=== PATIENT | male | born 1945 | race Caucasian/White ===

== ENCOUNTER 2024-08-15 21:03 | Inpatient (IN) | payer MEDICARE, BC, SELFPAY ==
[2024-08-15] VITALS (7 sets, daily range): BP systolic 98–136; BP diastolic 53–72; BMI 20.8
[2024-08-15 18:03] LABS: % Basophils 0.3 % (0-2); % Immature Granulocytes 0.3 % (0-0.5); % Lymphocytes 5.3 % (20.5-51.1); % Monocytes 6.7 % (1.7-9.3); % Neutrophils 87.4 % (42.2-75.2); Absolute Lymphocytes 0.5 10^3/uL (1.2-3.4); Absolute Monocytes 0.7 10^3/uL (0.1-0.6); Absolute Neutrophils 8.5 10^3/uL (1.4-6.5); Hematocrit 41.2 % (39.0-52.0); Mean Corpuscular Hgb 35.1 pg (27.0-31.0); Mean Corpuscular Volume 103.3 fL (80.0-94.0); Mean Platelet Volume 11.3 fL (7.4-10.4); Nucleated Red Blood Cells % 0 % (-); Platelet Count 140 10^3/uL (130-400); Red Blood Cell Count 3.99 10^6/uL (4.70-6.10); Red Cell Dist. Width 13.1 % (11.5-14.5); White Blood Cell Count 9.7 10^3/uL (4.8-10.8)
[2024-08-15 18:13] LABS: ALT (SGPT) 28 U/L (0-50); AST (SGOT) 39 U/L (17-59); Albumin 3.7 g/dl (3.5-5.0); Alkaline Phosphatase 75 U/L (38-126); Blood Urea Nitrogen 40 mg/dl (9-20); Calcium 8.5 mg/dl (8.4-10.2); Carbon Dioxide 31 mmol/L (22-30); Chloride 90 mmol/L (98-107); Glucose 125 mg/dl (70-99); Potassium 4.1 mmol/L (3.5-5.1); Sodium 127 mmol/L (135-145); Total Bilirubin 1.5 mg/dl (0.2-1.3); Total Protein 6.1 g/dl (6.3-8.2); eGFR 56.93
--- NOTE | 2024-08-15 19:13 | ED.GENMED ---
History of Present Illness
General
Chief Complaint: Breathing Problem
Time Seen by Provider: 08/15/24 18:23
History of Present Illness
History of Present Illness:
78-year-old male with history of stage IV head and neck cancer currently in remission, chronic bronchitis, and dysphagia with feeding tube dependence presents to the emergency department for evaluation of cough and fever as well as chills beginning
yesterday. Reports severe weakness, was unable to get himself up and out of bed today. No chest pain at present. Cough is dry but he does have audible crackles. He is able to tolerate small amounts of oral hydration denies any recent suspected
aspiration events but admits 'my aspiration tends to be silent'.
Limited review of patient's medical records through [facility] via [facility] revealed the patient had a CT scan last year showing right greater than left lower lung scarring
Review of Systems
Review of Systems
Allergies reviewed?: Yes
All Other Systems: ROS reviewed and negative except as documented in HPI and ROS
Phy Exam
Physical Exam
Physical Exam:
GEN: Thin and frail, no acute distress
Eyes: PERRLA, EOMs intact, no scleral icterus
HENT: NCAT, oral mucosa dry
Lungs: Tachypneic, no accessory muscle use, diffuse expiratory crackles heard throughout all lung stubbs
Cardiac: RRR, no M/R/G, no peripheral edema. Radial pulses 2+ bilat
Abdomen: S, NT, ND, NABS, no masses or hepatosplenomegaly
Neuro: AO x 3
MSK: No gross deformity or ecchymosis. No edema. No digital clubbing
Skin: No rashes, petechiae. Normal color, no pallor or jaundice.
Psych: Calm, cooperative, proper hygiene
Scores
Heart Failure Risk
Heart Failure Risk Score: Not Applicable
Course
Orders/Labs/Results
Orders:
Orders
08/15/24 Breakfast
Bolus/Syringe Enteral Tube Feed
At Your Request: Full Participation
Tube Feed Product: isosource
Patient's home regimen is:: isource 6 can s 2-3 times daily via G tube
08/15/24 17:40
Electrocardiogram (*1) Urgent
Reason for Study: Shortness of Breath
CXR2 [CR Chest - 2 Views ] Urgent
Comment:
Reason For Exam: sob
08/15/24 17:41
EKG- Treatment ONCE
08/15/24 17:51
Complete Blood Count/With Diff Urgent
Comprehensive Metabolic Panel Urgent
Serum Osmolality Urgent
Comment: ADD ON
08/15/24 18:48
Azithromycin 500 mg/250 ml [Zithromax Infusion] 500 mg in 250 ml IV NOW
CefTRIAXone [Rocephin] 1,000 mg IV NOW STA
08/15/24 18:49
Add On- LAB Urgent
Tests Added?: serum osmolality
Urine Sodium Urgent
Date Specimen was Collected: 08/16/24
Time Specimen was Collected: 00:15
08/15/24 19:12
Procalcitonin Urgent
PCT Algorithmm Indication: Respiratory
08/15/24 19:17
Ipratropium/Albuterol Sulfate [Duoneb] 3 ml INH R NOW ONE
08/15/24 19:21
Doxycycline [Vibramycin] 100 mg TUBE NOW STA
08/15/24 19:23
COVID-19 Antigen Urgent
Source: Nasal Swab
Influenza A+B Rapid Molecular Urgent
BENNY Source: Nasal Swab
Specimen Description:
08/15/24 19:36
0.9% Sodium Chloride 500 ml [Nss] 500 ml IV BOLUS
08/15/24 20:01
Urine Osmolality Random [Osmolality, Random Urine] Urgent
Date Specimen was Collected: 08/16/24
Time Specimen was Collected: 00:15
08/15/24 20:30
Legionella Urinary Antigen Urgent
BENNY Source: Urine
Specimen Description:
Strep pneumoniae Antigen Urgent
BENNY Source: Urine
Specimen Description:
08/15/24 20:44
Admit/Transfer Patient As Directed
Co-Sign Provider:
Level of Care: Inpatient admission
Assign to:: Medical/Surgical
Physician / Group: jayne
Diagnosis: pneumonia
Reason for Hospitalization: pneumonia
Expected length of stay greater than two midnights?: Yes
ELOS- Estimated Length of Stay in days: 3
I certify the patient meets the requirements for IP care: Yes
08/15/24 20:45
PRN Pain Medication Management As Directed
May give lesser potent ordered pain med per pt: Yes
preference::
Protocol:: Medication orders for pain may be administered in a
manner that supports deferring to patient preference
when the pt is:
- Requesting an ordered lesser potent pain medication.
Least to most potent pain medications are defined
as: acetaminophen < NSAID < tramadol < opioids
(morphine, oxycodone, hydromorphone).
- Requesting a lesser dose of the same medication IF
ORDERED.
- Requesting a less intrusive route of administration
if both routes are prescribed by the provider (PO <
IV).
08/15/24 20:47
Code Status As Directed
Resuscitation Status: Full Code
08/15/24 22:23
0.9% Sodium Chloride 1000 ml [Nss] 1,000 ml IV 120 mls/hr
Acetaminophen [Tylenol] 650 mg TUBE Q4HPRN PRN
Ipratropium/Albuterol Sulfate [Duoneb] 3 ml INH R Q4HPRN PRN
08/15/24 22:23
OID Stone Finisher Consult Routine
Reason for Consult: TF
Respiratory Culture/Gram Stain Urgent
BENNY Source: Sputum
Specimen Description:
Activity As Directed
Activity Level: Out of Bed-Early Mobility
Intake/ Output As Directed
Frequency: Per unit guidelines
Vital Signs As Directed
Frequency: Per unit guidelines
Weight As Directed
Frequency: Once
Comment: on admission
Pt Eval And Treat Routine
Activity Level: As Tolerated
Speech Therapy Eval & Treat Routine
DX Deep Vein Thrombosis Video Routine
08/16/24 Breakfast
NPO
Allow oral meds: No
Allow clear liquids: No
Basic Metabolic Panel IN AM
Levothyroxine [Synthroid] 137 mcg TUBE MoTuWeThFrSa@0600
08/16/24 08:00
Doxycycline [Vibramycin] 100 mg TUBE BID
Ezetimibe [Zetia] 10 mg TUBE DAILY
Rosuvastatin Calcium [Crestor] 20 mg TUBE DAILY
08/16/24 18:00
Enoxaparin Sodium [Lovenox] 40 mg SC QPM
08/16/24 20:00
CefTRIAXone [Rocephin] 1,000 mg IV Q24H
08/17/24 06:00
Basic Metabolic Panel IN AM
Levothyroxine [Synthroid] 274 mcg TUBE VELÁZQUEZ@0600
08/18/24 06:00
Basic Metabolic Panel IN AM
08/19/24 06:00
Basic Metabolic Panel IN AM
Abnormal Lab Results
08/15/24 08/15/24
17:51 19:12
RBC 3.99 L 10^6/uL
(4.70-6.10)
MCV 103.3 H fL
(80.0-94.0)
MCH 35.1 H pg
(27.0-31.0)
MPV 11.3 H fL
(7.4-10.4)
Absolute Neuts (auto) 8.5 H 10^3/uL
(1.4-6.5)
Absolute Lymphs (auto) 0.5 L 10^3/uL
(1.2-3.4)
Absolute Monos (auto) 0.7 H 10^3/uL
(0.1-0.6)
Neutrophils % 87.4 H %
(42.2-75.2)
Lymphocytes % 5.3 L %
(20.5-51.1)
Sodium 127 L mmol/L
(135-145)
Chloride 90 L mmol/L
(98-107)
Carbon Dioxide 31 H mmol/L
(22-30)
BUN 40 H mg/dl
(9-20)
Glucose 125 H mg/dl
(70-99)
Serum Osmolality 272 L mOsm/kg
(275-300)
Total Bilirubin 1.5 H mg/dl
(0.2-1.3)
Total Protein 6.1 L g/dl
(6.3-8.2)
Procalcitonin 1.51 H ng/ml
(0.0-0.25)
08/15/24 17:51
08/15/24 17:51
Vital Signs
Initial and Last Documented VS:
Initial Vital Signs
Temp Pulse Resp BP Pulse Ox
97.6 F 82 16 136/72 94
08/15/24 17:30 08/15/24 17:30 08/15/24 17:30 08/15/24 17:30 08/15/24 17:30
Last Documented Vital Signs
Temp Pulse Resp BP Pulse Ox
97.9 F 81 20 108/64 95
08/15/24 22:26 08/15/24 22:26 08/15/24 22:26 08/15/24 22:26 08/15/24 22:26
MDM/Problems Addressed
MDM/Problems Addressed:
Chest x-ray reveals a left lower lobe infiltrate, although I have no direct comparison images in the patient's medical record the description on his prior CT chest suggest this is a new infiltrate. He is also noted to be hyponatremic, review of
prior labs shows typical sodium levels of 1 34-1 35. Will start empiric antibiotics and admit for further evaluation and management
*Critical Care Note
Total Time (30-74mins, 75-104mins- exclusive of procedures): Not Applicable
ED Attending Note
-
Portions of this chart may have been created with voice recognition software.� Occasional wrong word or��sound alike� substitutions may have occurred due to the inherent limitations of voice recognition software.
Discharge Plan
Departure
Patient Disposition: Admit
Date of Disposition: 08/15/24
Time of Disposition: 19:53
Admit to: Med/Surg
Presentation/result/management discussed w/ accepting MD/DO: Hospitalist
Discharge Problem:
Left lower lobe pneumonia, Acute hyponatremia
Interventions
Interventions:
*Risk Screen - Suicide Last Done: 08/15/24 17:30
*General Assessment Last Done: 08/15/24 18:32
*Neglect/Abuse Screening Last Done: 08/15/24 17:30
*ED COVID-19 Vaccine History Last Done: 08/15/24 18:32
*Nursing Disposition Last Done: 08/15/24 22:23
ED- Cardiac Assessment Last Done: 08/15/24 18:31
ED- Pulmonary Assessment Last Done: 08/15/24 18:31
Discharge Date and Time
Discharge Date/Time: 08/15/24 22:24
[2024-08-15 19:35] LABS: Osmolality Serum 272 mOsm/kg (275-300)
[2024-08-15 19:48] LABS: Procalcitonin 1.51 ng/ml (0.0-0.25)
[2024-08-15 19:51] LABS: COVID-19 Antigen Negative (Negative)
--- NOTE | 2024-08-15 19:58 | HPS.HSE ---
Addendum entered and electronically signed by Vince Briceno DO 08/15/24 21:07:
Patient seen and examined independently. Agree with findings and plan as set forth by FLAKO Rogers.
Patient is a 78y M with PMH significant for head and neck cancer (lymphoepithelioma) currently in remission and chronic dysphagia / G-tube dependent who presents to ED complaining of fever / chills and cough x 24 hours. Patient reports cough
productive of white sputum. No known sick contacts. Generalized weakness / fatigue. Patient is generally followed at [facility] with no prior labs / visits here for comparison.
Ass:
LLL Pneumonia
Acute on Chronic Hyponatremia
Head and neck Cancer (in remission)
Chronic Dysphagia / Post-XRT and Surgical Changes
Hypothyroidism
Prostate Cancer
Plan:
Admit for further evaluation and treatment.
Abx for CAP. Supportive care, nebs, O2, etc.
Aspiration precautions / formal Speech evaluation.
Continue usual TF for now via PEG. Nothing by mouth.
IVFs overnight and follow for improvement in Na / lytes.
Follow-up results of urine studies.
Follow for clinical improvement.
Continue usual T4 supplementation.
Obtain prior records for comparison.
Original Note:
Family Physician
-
Family Physician: Avelina Langford MD
Chief Complaint
-
cough
chills
History of Present Illness
78-year-old male with history of stage IV lymphoepithelioma follows [facility], prostate ca, dysphagia presented to us with cough and fever as well as chills beginning yesterday. patient stated cough with white thick sputum. he felt warm
yesterday but did not check the temperature. patient stated very fatigue and weak since yesterday. denied SAMAYOA, dizzy or syncope.denied chest pain but stated sob. denied abdominal pain,n,v. 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 denied dysuria or
hematuria.
chest x ray with LLL pneumonia. patient ordered ceftriaxone, zithro and doxy in ER. patient received nebs in ER. admitting for further management.
Medical History
Past Medical History
Past Medical History: Reports Other
Additional Past Medical History:
lymphoepithelioma
osteoradionecrosis
HLD
prostate cancer
hypothyroidism
pneumonia
dysphagia
Past Surgical History: Reports Other
Additional Past Surgical History:
right temporal bone removed
multiple neck surgery
muscle graft
Social History
Tobacco: Former Smoker
Alcohol: Occasional
Drug: None
Personal:
Living: With Family
Family History
Family History: Not pertinent
Allergies / Home Medications
Allergies reflects when Allergies were last updated in [facility].
Home Medications with original date entered in [facility]
Allergy/Medication List:
Allergies
Allergy/AdvReac Type Severity Reaction Status Date / Time
Sulfa (Sulfonamide Allergy Hives Verified 08/15/24 17:40
Antibiotics)
Home Medications
albuterol sulfate 90 mcg/actuation aerosol inhaler 2 puff inhalation R Q6HPRN PRN sob 08/15/24
aspirin 81 mg tablet,delayed release 81 mg PO DAILY 08/15/24
bisacodyl 5 mg tablet,delayed release (Dulcolax (bisacodyl)) 10 mg PO DAILYPRN PRN if no bm aftr miralax 08/15/24
ezetimibe 10 mg tablet (Zetia) 10 mg PO DAILY 08/15/24
fluticasone propionate 50 mcg/actuation nasal spray,suspension 1 spray intranasal BIDPRN PRN allergies 08/15/24
formoterol fumarate 20 mcg/2 mL solution for nebulization 20 mcg inhalation R BID 08/15/24
guaifenesin 600 mg tablet, extended release 12 hr (Mucinex) 600 mg PO BIDPRN PRN cough 08/15/24
levothyroxine 137 mcg tablet (Synthroid) 137 mcg PO MOTUWETHFRSA@0800 08/15/24
levothyroxine 137 mcg tablet (Synthroid) 274 mcg PO VELÁZQUEZ@0800 08/15/24
polyethylene glycol 3350 17 gram oral powder packet (Miralax) 17 g PO DAILYPRN PRN constipation 08/15/24
rosuvastatin 20 mg tablet (Crestor) 20 mg PO DAILY 08/15/24
vitamins A,C,G-ypfr-juloxu 2,148 mcg-113 mg-45 mg-17.4 mg tablet (PreserVision AREDS) 1 tab PO BID 08/15/24
Review of Systems
-
Constitutional: Reports Fever and Fatigue
EENT: Reports No Symptoms
Respiratory: Reports Cough and Trouble Breathing
Cardiac: Reports No Symptoms
Abdomen/GI: Reports No Symptoms
: Reports No Symptoms
Musculoskeletal: Reports No Symptoms
Skin: Reports No Symptoms
Neurological: Reports Weakness
Endocrine: Reports No Symptoms
Hematologic/Lymphatic: Reports No Symptoms
Psych: Reports No Symptoms
Physical Exam
Vital Signs
Vital Signs
Temp Pulse Resp BP Pulse Ox
97.6 F 77 24 123/70 95
08/15/24 17:30 08/15/24 18:28 08/15/24 18:28 08/15/24 18:28 08/15/24 18:31
Physical Exam
General: Well Developed, Well Nourished and No Apparent Distress
HEENT: NormoCephalic, Moist mucous membranes and Atraumatic
Respiratory: Rhonchi and Crackles
Cardiac: S1/S2 and Regular Rhythm; No Murmur or Rub
GI: Soft, Non Tender, Non Distended and Normal Bowel Sounds; No Organomegaly
Rectal: Deferred by Provider
Musculoskeletal: No Clubbing, No Cyanosis and No Edema
Skin: No Rash
Neuro: AO x 3 and Nonfocal/grossly intact
Psych: Calm
Laboratory Results
-
02/21/25 17:51
08/15/24 17:51
Laboratory Results
Total Bilirubin 1.5 mg/dl (0.2-1.3) H 08/15/24 17:51
AST 39 U/L (17-59) 08/15/24 17:51
ALT 28 U/L (0-50) 08/15/24 17:51
Alkaline Phosphatase 75 U/L (38-126) 08/15/24 17:51
Data Reviewed
-
Diagnostic Radiology: Report Reviewed by me
Lab Data: Labs Reviewed by me
Impression/Plan
-
#left lower lobe pneumonia
-procal 1.51
-covid negative
-flu negative
-chest x ray with Moderate amount of airspace opacity in the left lower lung most consistent with MODERATE LEFT LOWER LOBE PNEUMONIA. An inflammatory pneumonitis or alveolar pulmonary edema are considered less likely.
-iv ceftriaxone and doxy continued
-urine legionella and strep pneumonia
-Tylenol prn for fever
#stage 1v lymphoepithelioma
-last radiation therapy in 1998
-hxt of neck surgery
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
-defer medication that cause ototoxicity
#dysphagia due to cancer
-peg tube in place, patient takes oral liquid
-will keep patient NPO, until speech evaluation
-will continue Isosource TF
#acute on chronic hyponatremia likely from hypovolemic
-na 127
-fluids continued
-BMP in am
#hxt of prostate ca
-s/p proton therapy
#hypothyroidism
-levothyroxine continued
#HLD
-statin,Zetia continued
#DVT prophylaxis
-Lovenox
#CODE status
-full code
-patient has complicated Airway.
[2024-08-15] MEDS: ROCEPHIN 1000 MG IV (20:26)
[2024-08-15] MEDS: NSS 500 IV (20:26)
[2024-08-15] MEDS: VIBRAMYCIN 100 MG TUBE (20:33)
[2024-08-15] MEDS: DUONEB 3 ML INH (20:33)
--- NOTE | 2024-08-15 22:30 | PTCARENOTE ---
Pt arrived to [facility] from ED, AAOx3, 4/10 pain throughout body but denies the need for pain meds at this time. Pt oriented to room, call dudley within reach. PEG site remains clean dry and intact in LUQ abdomen. Plan of care reviewed with pt, VSS.
Pt is ordered bolus/syringe tube feedings - isosource 6 cans daily. Nursing pressroom supervisor Moy notified - will check kitchen for tube feed cans.
[2024-08-16 00:46] LABS: Osmolality Urine 571 mOsm/kg (300-900)
[2024-08-16 01:01] LABS: Urine Sodium 10 mmol/L (30-90)
[2024-08-16] MEDS: NSS 1000 IV (01:45)
[2024-08-16] MEDS: SYNTHROID 137 MCG TUBE (05:54)
[2024-08-16] MEDS: TYLENOL 650 MG TUBE ×3 (05:54→22:02)
[2024-08-16 06:00] VITALS: BMI 20.8
[2024-08-16 07:05] VITALS: BP 89/49
[2024-08-16] MEDS: VENTOLIN NEBULES 2.5 MG INH ×4 (07:58→19:41)
--- NOTE | 2024-08-16 08:12 | W.PN.HOSP.TC ---
Today's Communication/Plan
-
Continue antibiotics
Await labs
Resume tube feeds
Speech therapy consult
Acapella, incentive spirometer
Guaifenesin
Assessment / Plan
Assessment / Plan
Gen-AAOx3, NAD
HEENT-NC, AT, anicteric, clear oral mm
Neck-supple
CV-reg, no M, +S1/S2
Lungs-Rales at the left base
Abd-soft, NT, ND
Ext-no edema
Musculoskeletal-no cyanosis, clubbing
Skin-warm and dry
Neuro-grossly non-focal
Psych-calm, cooperative
Community-acquired pneumonia -involving left lower lobe. Continue ceftriaxone, doxycycline. Not hypoxic. Chest x-ray reviewed.
Last episode of pneumonia was 1 year ago as per patient. Hemodynamically stable. Afebrile. WBC count normal.
COVID, influenza negative. Urinary antigens negative.
Chronic dysphagia -due to previous head and neck cancer, radiation treatments. Resume tube feeds via PEG tube. In the hospital he uses Jevity 1.5 as per nursing.
Speech therapy consulted as patient does drink water and coffee by mouth at home.
Acute on chronic hyponatremia -suspect SIADH. Serum osmolality 272, urine osmolality 571. Labs pending for today. Recommend fluid restriction. Can stop IV fluids.
History of head and neck cancer -last radiation treatment 1998.
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
Hypothyroidism -continue levothyroxine.
Hyperlipidemia -rosuvastatin, Zetia.
History of prostate cancer
full code
Dispo -potential discharge tomorrow if he remains stable. Discussed with patient.
Anticipated Discharge: Within 24 hours
Subjective/Interval History
-
Date of Service: August 16, 2024
Patient seen and examined. No complaints currently.
Objective Data
-
Labs:
Laboratory Results
08/16/24
06:00
Sodium Pending
Potassium Pending
Chloride Pending
Carbon Dioxide Pending
BUN Pending
Creatinine Pending
Glucose Pending
Calcium Pending
Vital Signs:
Vital Signs
Temp Pulse Resp BP Pulse Ox
97.9 F 18 20 108/64 95
08/15/24 22:26 08/16/24 08:02 08/15/24 22:26 08/15/24 22:26 08/16/24 08:02
I&O
08/15/24 08/16/24 08/17/24
06:59 06:59 06:59
Intake Total 500 / 500
Balance 500 / 500
Review of Systems
-
History Source: Patient
All other systems: Reviewed and negative
--- NOTE | 2024-08-16 09:11 | PTOTSP ---
SPEECH THERAPY SWALLOW EVALUATION:
Patient exhibits clinical signs of pharyngeal dysphagia, in patient with known chronic pharyngeal and esophageal dysphagia 2/2 XRT and surgical changes for head/neck cancer. Patient currently with pneumonia, along with history of repeated
pneumonias. Patient currently tolerating oral liquids (coffee and water) and medications at home with PEG for all nutrition. History of VSEs at [facility], most recently several years ago per pt report. Given chronicity of dysphagia and history of XRT,
patient remains at HIGH RISK for aspiration (including silent aspiration) and related complications. Recommend VSE to further assess current swallow physiology at this time. Given chronicity of dysphagia and PEG tube currently in place, patient
would be appropriate to complete VSE as Outpatient (at or [facility] per pt preference). Recommend continued outpatient follow up with patient's current ST at [facility] upon discharge. Until VSE, recommend strict NPO with PEG for all
nutrition/medication/hydration. Consider initiation of ARHP once pulmonary status improves. Discussed with patient, who was in agreement with plan. ST to follow at the acute care level.
RECOMMEND:
1) strict NPO with PEG for all nutrition/medication/hydration
2) VSE - would be appropriate for Outpatient at or [facility] per patient preference
3) Continued outpatient ST follow up
4) Oral care 3x/day
5) ST to follow at the acute care level
6) Consider initiation of ARHP once pulmonary status improves
[2024-08-16 09:25] VITALS: BP 107/56; BP 95/54; PULSE 71
[2024-08-16 10:09] LABS: Blood Urea Nitrogen 27 mg/dl (9-20); Calcium 7.6 mg/dl (8.4-10.2); Carbon Dioxide 29 mmol/L (22-30); Chloride 96 mmol/L (98-107); Estimated Creatinine Clearance 88 ml/min; Glucose 91 mg/dl (70-99); Potassium 4.2 mmol/L (3.5-5.1); Sodium 128 mmol/L (135-145); eGFR > 60.00
[2024-08-16] MEDS: VIBRAMYCIN 100 MG TUBE ×2 (10:28→22:03)
[2024-08-16] MEDS: ZETIA 10 MG TUBE (10:28)
[2024-08-16] MEDS: CRESTOR 20 MG TUBE (10:28)
[2024-08-16] MEDS: ROBITUSSIN 200 MG TUBE ×4 (10:33→21:40)
[2024-08-16] MEDS: NSS IV (10:50)
[2024-08-16 12:04] VITALS: BMI 20.8
[2024-08-16 15:10] VITALS: BP 121/68
[2024-08-16 15:40] LABS: TSH 1.94 uIU/ml (0.47-4.68)
[2024-08-16] MEDS: ROBITUSSIN TUBE (17:09)
[2024-08-16] MEDS: LOVENOX 40 MG SC (17:09)
[2024-08-16] MEDS: VIBRAMYCIN TUBE (21:40)
[2024-08-16] MEDS: ROCEPHIN IV (21:41)
[2024-08-16] MEDS: ROCEPHIN 1000 MG IV (22:03)
--- NOTE | 2024-08-16 23:21 | PTCARENOTE ---
Patient receiving Rocephin and Vibramycin. Patient states concern with ototoxicity as a side effect of certain medications. RN verified with pharmacy that ototoxicity is not a side effect of these medications. Medication teaching provided to
patient.
[2024-08-17 00:44] VITALS: BP 93/50
[2024-08-17] MEDS: SYNTHROID 274 MCG TUBE (05:01)
[2024-08-17 07:14] LABS: Blood Urea Nitrogen 18 mg/dl (9-20); Calcium 7.9 mg/dl (8.4-10.2); Carbon Dioxide 28 mmol/L (22-30); Chloride 94 mmol/L (98-107); Estimated Creatinine Clearance 118 ml/min; Glucose 96 mg/dl (70-99); Potassium 4.1 mmol/L (3.5-5.1); Sodium 130 mmol/L (135-145); eGFR > 60.00
[2024-08-17] MEDS: VENTOLIN NEBULES 2.5 MG INH (07:33)
[2024-08-17 08:00] VITALS: BP 106/56
--- NOTE | 2024-08-17 08:44 | CM ---
Addendum entered by Norma Swain 08/17/24 09:05:
Plan: discharge to home today
IMM benefit explained; form signed @ 0905
Original Note:
Initial assessment completed
Pharmacy verified: [facility] @ [address]
Patient reported he lives with his in a multilevel home; 1 step to enter; 6 steps to 2nd floor; railings present; powder room 1st floor; 2nd floor bath has walk-in shower with seat
PLOF: independent with ambulation, stairs, and ADLs; drives
NO history of SNF or Home Health utilization
will transport home
Plan: discharge to home when stable; no needs anticipated
--- NOTE | 2024-08-17 08:50 | W.PN.HOSP.TC ---
Today's Communication/Plan
-
Discharge
Assessment / Plan
Assessment / Plan
Gen-AAOx3, NAD
HEENT-NC, AT, anicteric, clear oral mm
Neck-supple
CV-reg, no M, +S1/S2
Lungs-Rales at the left base
Abd-soft, NT, ND
Ext-no edema
Musculoskeletal-no cyanosis, clubbing
Skin-warm and dry
Neuro-grossly non-focal
Psych-calm, cooperative
Community-acquired pneumonia -involving left lower lobe. Continue ceftriaxone, doxycycline. Not hypoxic. Chest x-ray reviewed.
He was drinking water and coffee by mouth prior to admission. Speech therapy recommends strict NPO. I suspect that we could be dealing with aspiration pneumonia rather than community-acquired pneumonia. I spoke with patient this morning and
recommend strict n.p.o. on discharge until he sees his speech therapist as an outpatient. Continue tube feeds. All meds and liquids through the tube.
Last episode of pneumonia was 1 year ago as per patient. Hemodynamically stable. Afebrile. WBC count normal.
COVID, influenza negative. Urinary antigens negative.
Chronic dysphagia -due to previous head and neck cancer, radiation treatments. Resume tube feeds via PEG tube. In the hospital he uses Jevity 1.5 as per nursing.
Acute on chronic hyponatremia -suspect SIADH. Serum osmolality 272, urine osmolality 571. Sodium improved to 130.
History of head and neck cancer -last radiation treatment 1998.
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
Hypothyroidism -continue levothyroxine.
Hyperlipidemia -rosuvastatin, Zetia.
History of prostate cancer
full code
Dispo -medically stable for discharge home today. Outpatient follow-up.
32 minutes spent in discharge process.
Anticipated Discharge: Today
Subjective/Interval History
-
Date of Service: August 17, 2024
Patient seen and examined. No complaints.
Objective Data
-
Labs:
Laboratory Results
08/17/24
06:05
Sodium 130 L
Potassium 4.1
Chloride 94 L
Carbon Dioxide 28
BUN 18
Creatinine 0.6 L
Glucose 96
Calcium 7.9 L
Vital Signs:
Vital Signs
Temp Pulse Resp BP Pulse Ox
98.5 F 74 14 93/50 94
08/17/24 00:44 08/17/24 07:42 08/17/24 07:42 08/17/24 00:44 08/17/24 07:42
I&O
08/16/24 08/17/24 08/18/24
06:59 06:59 06:59
Intake Total 500 / 500 720 / 720
Balance 500 / 500 720 / 720
Review of Systems
-
History Source: Patient
All other systems: Reviewed and negative
--- NOTE | 2024-08-17 08:56 | W.DS.TRANS ---
DC Summary - Building Architectural Designer
-
Discharge Instructions:
Discharge Diagnosis/Procedures Pneumonia, dysphagia
Diet Tube feeding
Additional Diets Please do not drink or eat anything by mouth
Activity As tolerated
Driving Restrictions As prior to admission
Bathing Restrictions None
Blood Work BMP in 1 week with your primary care doctor
Other Services ST
Instructions:
Stand-Alone Forms:
Changes to Home Medications: No
Discharge Medications:
DC Medications w/original date entered in [facility]
albuterol sulfate 90 mcg/actuation aerosol inhaler 2 puff inhalation R Q6HPRN PRN sob 08/15/24
fluticasone propionate 50 mcg/actuation nasal spray,suspension 1 spray intranasal BIDPRN PRN allergies 08/15/24
formoterol fumarate 20 mcg/2 mL solution for nebulization 20 mcg inhalation R BID Lung/Breathing Issues 08/15/24
vitamins A,C,N-xeak-emxiom 2,148 mcg-113 mg-45 mg-17.4 mg tablet (PreserVision AREDS) 1 tab PO BID Supplement 08/15/24
amoxicillin 250 mg-potassium clavulanate 62.5 mg/5 mL oral suspension 10 ml feeding tube TID #150 mL 08/17/24
aspirin 81 mg tablet,delayed release 81 mg feeding tube DAILY Blood Clot Prevention/Tx #0 tabs 08/17/24
ezetimibe 10 mg tablet (Zetia) 10 mg feeding tube DAILY High Cholesterol #0 tabs 08/17/24
guaifenesin 100 mg/5 mL oral liquid 200 mg (10 mL) feeding tube QID #0 mL 08/17/24
levothyroxine 137 mcg tablet (Synthroid) 137 mcg feeding tube MOTUWETHFRSA@0800 Thyroid #0 tabs 08/17/24
levothyroxine 137 mcg tablet (Synthroid) 274 mcg (2 x 137 mcg) feeding tube VELÁZQUEZ@0800 Thyroid #0 tabs 08/17/24
polyethylene glycol 3350 17 gram oral powder packet (Miralax) 17 g feeding tube DAILYPRN PRN constipation #0 ea 08/17/24
rosuvastatin 20 mg tablet (Crestor) 20 mg feeding tube DAILY High Cholesterol #0 tabs 08/17/24
Home Medication Changes
Pending Results: No
[2024-08-17] MEDS: ZETIA 10 MG TUBE (09:18)
[2024-08-17] MEDS: CRESTOR 20 MG TUBE (09:18)
[2024-08-17] MEDS: VIBRAMYCIN 100 MG TUBE (09:18)
[2024-08-17] MEDS: ROBITUSSIN 200 MG TUBE (09:18)
[2024-08-17] MEDS: VENTOLIN NEBULES INH (11:26)
[2024-08-17 13:14] VITALS: BP 116/58
== END 2024-08-17 13:28 | disposition home or self-care (01) | DRG 194 ==
LOC: 4 WEST ACU 21:03
PROVIDERS: Emergency Medicine; Physician Assistant; Registered Nurse; ADMITTING PHYSICIAN Hospitalist; ATTENDING PHYSICIAN Hospitalist; EMERGENCY PHYSICIAN Emergency Medicine; FAMILY PHYSICIAN Family Medicine
DX: J18.9 Pneumonia, unspecified organism (principal); E87.1 Hypo-osmolality and hyponatremia; E03.9 Hypothyroidism, unspecified; R13.19 Other dysphagia; E86.1 Hypovolemia; E78.5 Hyperlipidemia, unspecified; Z85.46 Personal history of malignant neoplasm of prostate; Z11.52 Encounter for screening for COVID-19; Z93.1 Gastrostomy status; Z88.2 Allergy status to sulfonamides; Z79.82 Long term (current) use of aspirin; Z79.890 Hormone replacement therapy; Z79.899 Other long term (current) drug therapy; Z92.3 Personal history of irradiation; Z87.891 Personal history of nicotine dependence; Z85.89 Personal history of malignant neoplasm of other organs and systems
CPT/HCPCS: 71046; 80048; 80053; 83930; 83935; 84145; 84300; 84443; 85025; 87449; 87502; 87811; 87899; 92610; 93005; 94640; 96374; 96375; 97116; 97162; 99285